=== PATIENT | female | born 1985 | race Caucasian/White ===

== ENCOUNTER 2017-07-24 10:38 | Inpatient (IN) | payer MEDICARE, MEDICAID ==
[~2017-07-24] VITALS: Ht 162.6 cm; Wt 57.0 kg
[~2017-07-24 10:38] MED LIST: ACET325 PO; CARB200 PO; CIPR500T4 PO; DICY1TAB26 PO; OMPR20CCR PO; PRED10 PO; PROZ20CA11 PO; RISP1 PO; VIST50CA PO
[2017-07-24] MEDS ORDERED: SODIUM CHLOR 0.9% 1000 ML INJ 1,000 ML IV SCH (10:43)
[2017-07-24] MEDS ORDERED: SODIUM CHLORIDE 0.9% FLUSH 10 ML FLUSH IV FLUSH PRN ×2 (10:45→13:45)
[2017-07-24 10:50] VITALS: BP 121/82; PULSE 96; RESP 18; TEMP 99; O2SAT 97
--- NOTE | 2017-07-24 11:08 | RADRPT ---
EXAM DATE/TIME: 07/24/2017 10:49 [facility] COMPARISON: CHEST SINGLE AP, December 19, 2012, 10:00. INDICATIONS : Syncope. MEDICAL HISTORY : Non-responsive. SURGICAL HISTORY : Non-responsive ENCOUNTER: Initial ACUITY: 1 day PAIN SCORE: Non-responsive. LOCATION: Bilateral chest FINDINGS: A single view of the chest demonstrates the lungs to be symmetrically aerated without evidence of mas s, infiltrate or effusion. The cardiomediastinal contours are unremarkable. Osseous structures are intact. CONCLUSION: 1. No acute cardiopulmonary findings. German Alexander MD on July 24, 2017 at 11:06 Board Certified Radiologist. This report was verified electronically.
--- NOTE | 2017-07-24 11:15 | PD ---
HPI Chief Complaint: Seizure Time Seen by Provider: 10:54 Travel History International Travel<30 days: No Contact w/Intl Traveler<30days: No History of Present Illness HPI Patient comes emergency department from [facility] after having 3 witnessed seizures. Patient was there reportedly for treatment of substance abuse. Patient received Versed in route by EMS and is currently nonverbal and appears postictal thus severely limiting H&P, but is noted in her chart from previous visits that she has a history of epilepsy. Paperwork sent with patient shows that she was placed in her [place] on July 20 is good for 5 days. PFSH Past Medical History Asthma: Yes Bipolar Disorder: Yes Anxiety: Yes Depression: Yes Cancer: No Endocrine: No Gastrointestinal Disorders: Yes (CROHN'S & ULCERATIVE COLITIS) Genitourinary: No Hiatal Hernia: Yes (HERNIA REPAIR) Immune Disorder: No Musculoskeletal: Yes Neurologic: Yes Psychiatric: Yes (PTSD) Reproductive: No Respiratory: Yes Schizophrenia: Yes Seizures: Yes (EPPILESY) Tubal Ligation: Yes Past Surgical History Abdominal Surgery: Yes (HERNIA, COLON RESEC, COLOSTOMY & REVERSAL) Social History Alcohol Use: Yes (OCC) Tobacco Use: No Allergies-Medications (Allergen,Severity, Reaction): Coded Allergies: No Known Allergies (Unverified , 12/19/12) Reported Meds & Prescriptions Reported Meds & Active Scripts Active Reported Morphine ER (Morphine Sulfate) 15 Mg Tab 15 Mg PO BID Proair Hfa 8.5 GM Inh (Albuterol Sulfate) 90 Mcg/Act Aer 2 Puff INH Q6H PRN 108 mcg/actuation Mirapex (Pramipexole Dihydrochloride) 1 Mg Tab 1 Mg PO BID Seroquel (Quetiapine Fumarate) 200 Mg Tab 200 Mg PO BID Gabapentin 300 Mg Cap 300 Mg PO TID Prednisone 10 Mg Tab 30 Mg PO DAILY Zantac (Ranitidine HCl) 150 Mg Tab 150 Mg PO BID Tegretol (Carbamazepine) 200 Mg Tab 200 Mg PO BID Review of Systems ROS Limitations: Clinical Condition Except as stated in HPI: all other systems reviewed are Neg Physical Exam Exam Limitations: Clinical Condition Narrative GENERAL: Well-developed, well nourished, in no acute distress, and non-ill appearing. SKIN: Focused skin assessment warm and dry. HEAD: Atraumatic. Normocephalic. EYES: Pupils equal and round. No scleral icterus. No injection or drainage. ENT: No nasal bleeding or discharge. Mucous membranes pink and moist. No bite hernández or injuries noted to the tongue or teeth. NECK: Trachea midline. No JVD. Supple. CARDIOVASCULAR: Regular rate and rhythm. No murmur appreciated. RESPIRATORY: No accessory muscle use. No respiratory distress. Clear to auscultation. Breath sounds equal bilaterally. GASTROINTESTINAL: Abdomen soft, non-tender, nondistended, and no guarding. Hepatic and splenic margins not palpable. Normal bowel sounds x4. No pulsatile mass. MUSCULOSKELETAL: No obvious deformities. No clubbing. No cyanosis. No edema. NEUROLOGICAL: Postictal Data Data Last Documented VS Vital Signs Date Time Temp Pulse Resp B/P (MAP) Pulse Ox O2 Delivery O2 Flow Rate FiO2 07/24/17 11:17 99.0 85 18 121/82 (95) 97 Room Air Orders Orders Electrocardiogram (07/24/17 10:43) Ammonia (07/24/17 10:43) Complete Blood Count With Diff (07/24/17 10:43) Comprehensive Metabolic Panel (07/24/17 10:43) Prothrombin Time / Inr (Pt) (07/24/17 10:43) Act Partial Throm Time (Ptt) (07/24/17 10:43) Thyroid Stimulating Hormone (07/24/17 10:43) Urinalysis - C+S If Indicated (07/24/17 10:43) Chest, Single Ap (07/24/17 10:43) Ct Brain W/O Iv Contrast(Rout) (07/24/17 10:43) Blood Glucose (07/24/17 10:43) Ecg Monitoring (07/24/17 10:43) Iv Access Insert/Monitor (07/24/17 10:43) Oximetry (07/24/17 10:43) Sodium Chloride 0.9% Flush (Ns Flush) (07/24/17 10:45) Sodium Chlor 0.9% 1000 Ml Inj (Ns 1000 M (07/24/17 10:43) Drug Screen, Random Urine (07/24/17 10:43) Alcohol (Ethanol) (07/24/17 10:43) Tylenol (Acetaminophen) (07/24/17 10:43) Salicylates (Aspirin) (07/24/17 10:43) Cath For Specimen (07/24/17 10:43) Lactic Acid (07/24/17 10:43) Ed Urine Pregnancytest Poc (07/24/17 10:45) Ketorolac Inj (Toradol Inj) (07/24/17 13:00) Carbamazepine (Tegretol) (07/24/17 13:00) Gabapentin (Neurontin) (07/24/17 13:00) Place In Observation (07/24/17 ) Vital Signs (Adult) Q4H (07/24/17 13:32) Neuro Checks Q4H (07/24/17 13:32) Activity Oob With Assistance (07/24/17 13:32) Diet Regular Basic (07/24/17 Lunch) Sodium Chlor 0.9% 1000 Ml Inj (Ns 1000 M (07/24/17 13:32) Sodium Chloride 0.9% Flush (Ns Flush) (07/24/17 13:45) Sodium Chloride 0.9% Flush (Ns Flush) (07/24/17 21:00) Acetaminophen (Tylenol) (07/24/17 13:45) Ondansetron Inj (Zofran Inj) (07/24/17 13:45) Comprehensive Metabolic Panel (07/25/17 06:00) Complete Blood Count With Diff (07/25/17 06:00) Resp Oxygen Spike C Titrat 1-4 L (07/24/17 ) Pt Request For Service (07/24/17 13:32) Case Management Consult (07/24/17 13:32) Enoxaparin Inj (Lovenox Inj) (07/24/17 13:45) Scd Bilateral/Knee High LIZETH.BID (07/24/17 13:32) Logan Bilateral/Knee High LIZETH.QSHIFT (07/24/17 13:32) Naloxone Inj (Narcan Inj) (07/24/17 13:45) Docusate Sodium-Senna (Lesly-Colace) (07/24/17 21:00) Magnesium Hydroxide Liq (Milk Of Magnesi (07/24/17 13:45) Sennosides (Senokot) (07/24/17 13:45) Bisacodyl Supp (Dulcolax Supp) (07/24/17 13:45) Lactulose Liq (Lactulose Liq) (07/24/17 13:45) Albuterol Hfa Inh (Proair Hfa Inh) (07/24/17 13:45) Carbamazepine (Tegretol) (07/24/17 21:00) Gabapentin (Neurontin) (07/24/17 18:00) Pramipexole (Mirapex) (07/24/17 21:00) Quetiapine (Seroquel) (07/24/17 21:00) (Nf) Ranitidine (Zantac) (07/24/17 21:00) Consult Neurology (07/24/17 ) Portable Eeg (07/24/17 ) Prednisone (Deltasone) (07/25/17 09:00) Admit Order (Ed Use Only) (07/24/17 ) Vital Signs (Adult) Q4H (07/24/17 13:44) Activity Oob With Assistance (07/24/17 13:44) Notify Dr: Other (07/24/17 13:44) Labs Laboratory Tests Test 07/24/17 10:55 07/24/17 11:10 07/24/17 12:20 Blood Urea Nitrogen 9 MG/DL Creatinine 0.62 MG/DL Random Glucose 88 MG/DL Total Protein 7.2 GM/DL Albumin 3.3 GM/DL Calcium Level 9.4 MG/DL Alkaline Phosphatase 90 U/L Aspartate Amino Transf (AST/SGOT) 16 U/L Alanine Aminotransferase (ALT/SGPT) 18 U/L Total Bilirubin 0.1 MG/DL Sodium Level 136 MEQ/L Potassium Level 4.2 MEQ/L Chloride Level 103 MEQ/L Carbon Dioxide Level 25.7 MEQ/L Anion Gap 7 MEQ/L Estimat Glomerular Filtration Rate 111 ML/MIN Lactic Acid Level 1.5 mmol/L Ammonia 17 MCMOL/L Thyroid Stimulating Hormone 3rd Gen 0.288 uIU/ML Acetaminophen Level 2.9 MCG/ML Ethyl Alcohol Level LESS THAN 3 MG/DL Urine Color LIGHT-YELLOW Urine Turbidity CLEAR Urine pH 7.0 Urine Specific [place] 1.010 Urine Protein NEG mg/dL Urine Glucose (UA) NEG mg/dL Urine Ketones NEG mg/dL Urine Occult Blood NEG Urine Nitrite NEG Urine Bilirubin NEG Urine Urobilinogen LESS THAN 2.0 MG/DL Urine Leukocyte Esterase NEG Urine WBC LESS THAN 1 /hpf Urine Squamous Epithelial Cells 2 /hpf Microscopic Urinalysis Comment CATH-CULT NOT IND Urine Opiates Screen NEG Urine Barbiturates Screen NEG Urine Amphetamines Screen NEG Urine Benzodiazepines Screen POS Urine Cocaine Screen NEG Urine Cannabinoids Screen NEG White Blood Count 8.5 TH/MM3 Red Blood Count 4.02 MIL/MM3 Hemoglobin 11.2 GM/DL Hematocrit 33.8 % Mean Corpuscular Volume 84.1 FL Mean Corpuscular Hemoglobin 27.9 PG Mean Corpuscular Hemoglobin Concent 33.2 % Red Cell Distribution Width 17.3 % Platelet Count 405 TH/MM3 Mean Platelet Volume 7.8 FL Neutrophils (%) (Auto) 69.7 % Lymphocytes (%) (Auto) 21.4 % Monocytes (%) (Auto) 6.0 % Eosinophils (%) (Auto) 2.1 % Basophils (%) (Auto) 0.8 % Neutrophils # (Auto) 5.9 TH/MM3 Lymphocytes # (Auto) 1.8 TH/MM3 Monocytes # (Auto) 0.5 TH/MM3 Eosinophils # (Auto) 0.2 TH/MM3 Basophils # (Auto) 0.1 TH/MM3 CBC Comment DIFF FINAL Differential Comment Prothrombin Time 9.5 SEC Prothromb Time International Ratio 0.9 RATIO Activated Partial Thromboplast Time 27.1 SEC MDM Medical Decision Making Medical Screen Exam Complete: Yes Emergency Medical Condition: Yes Interpretation(s) EKG reviewed by Dr. Black shows normal sinus rhythm with a ventricular rate of 93. No STEMI. Last Impressions Head CT 07/24/171042 Signed Impressions: Service Date/Time: Monday, July 24, 2017 11:00 - CONCLUSION: Negative exam. No acute intracranial process to explain clinical symptoms. Matthew Mart MD Chest X-Ray 07/24/17 104 Signed Impressions: Service Date/Time: Monday, July 24, 2017 10:49 - CONCLUSION: 1. No acute cardiopulmonary findings. German Alexander MD Differential Diagnosis Uncontrolled epilepsy, substance abuse, metabolic disturbance, UTI, thyroid disorder, mass, pneumonia Narrative Course Upon reevaluation. Patient is more alert reports that she has a history of epilepsy past was taking Tegretol 200 mg twice daily and gabapentin 300 mg 3 times daily. Patient denies substance abuse was noted on [place] states that she takes her medications as prescribed. Patient denies seeing a neurologist currently. Patient is appears to be mildly groggy. Patient's E-force was reviewed shows patient is not excreted prescription for narcotics since April of this year and has not received a prescription for Xanax since December of last year. Patient was seen and examined. Initial laboratory radiological studies were ordered. Discussed patient with Dr. Black, who saw and evaluated patient is in agreement with plan of care and disposition. Discussed all findings plan the patient is agreeable for admission. All questions were answered. Discussed patient with hospitalist who is agreeable to admit the patient. Patient remained stable throughout ED course. Physician Communication Physician Communication [phone] Carolina, who is agreeable to admit the patient. Diagnosis Primary Impression: Epilepsy Qualified Codes: G40.901 - Epilepsy, unspecified, not intractable, with status epilepticus Additional Impression: Low TSH level Admitting Information Admitting Physician Requests: Observation Condition: Stable Candido Hauser Jul 24, 2017 11:15
[2017-07-24 11:17] VITALS: BP 121/82; PULSE 85; RESP 18; TEMP 99; O2SAT 97
--- NOTE | 2017-07-24 11:18 | RADRPT ---
EXAM DATE/TIME: 07/24/2017 11:00 [facility] COMPARISON: No previous studies available for comparison. INDICATIONS : Altered mental status RADIATION DOSE: 56.35 CTDIvol (mGy) MEDICAL HISTORY : Seizures. Asthma SURGICAL HISTORY : Tubal ligation. ENCOUNTER: Initial ACUITY: 1 day PAIN SCALE: Non-responsive LOCATION: cranial TECHNIQUE: Multiple contiguous axial images were obtained of the head. Using automated exposure control and adj ustment of the mA and/or kV according to patient size, radiation dose was kept as low as reasonably a chievable to obtain optimal diagnostic quality images. DICOM format image data is available electro nically for review and comparison. FINDINGS: CEREBRUM: The ventricles are normal for age. No evidence of midline shift, mass lesion, hemorrhage or acute in farction. Dense, benign pineal calcification. No extra-axial fluid collections are seen. POSTERIOR FOSSA: The cerebellum and brainstem are intact. The 4th ventricle is midline. The cerebellopontine angle i s unremarkable. EXTRACRANIAL: The visualized portion of the orbits is intact. SKULL: The calvaria is intact. No evidence of skull fracture. CONCLUSION: Negative exam. No acute intracranial process to explain clinical symptoms. Matthew Mart MD on July 24, 2017 at 11:15 Board Certified Radiologist. This report was verified electronically.
[2017-07-24 11:31] LABS: BILIRUBIN, URINE NEG (NEG); BLOOD, URINE NEG (NEG); GLUCOSE,URINE NEG (NEG); KETONE, URINE NEG (NEG); NITRITE,URINE NEG (NEG); SQUAMOUS EPITHELIAL CELL URINE 2 /hpf (0-5); URINE COLOR LIGHT-YELLOW (YELLW/STRAW); URINE LEUKOCYTE ESTERASE NEG (NEG)
[2017-07-24 11:55] LABS: ACETAMINOPHEN 2.9 MCG/ML (10.0-30.0); ALBUMIN 3.3 GM/DL (3.4-5.0); ALT (GPT) 18 U/L (10-53); AST (GOT) 16 U/L (15-37); BICARBONATE 25.7 MEQ/L (21.0-32.0); BLOOD UREA NITROGEN 9 MG/DL (7-18); CALCIUM 9.4 MG/DL (8.5-10.1); CREATININE 0.62 MG/DL (0.50-1.00); GLOMERULAR FILTRATION RATE 111 ML/MIN (>89); GLUCOSE,RANDOM 88 MG/DL (74-106)
[2017-07-24 11:57] LABS: CHLORIDE 103 MEQ/L (98-107); SODIUM (NA) 136 MEQ/L (136-145)
[2017-07-24 12:04] LABS: ALKALINE PHOSPHATASE 90 U/L (45-117); TOTAL BILIRUBIN ADULT 0.1 MG/DL (0.2-1.0); TOTAL PROTEIN 7.2 GM/DL (6.4-8.2)
[2017-07-24 12:36] LABS: AUTOMATED NEUTROPHIL # 5.9 TH/MM3 (1.8-7.7); BASOPHIL # 0.1 TH/MM3 (0-0.2); BASOPHIL % 0.8 % (0.0-2.0); EOSINOPHIL # 0.2 TH/MM3 (0-0.4); EOSINOPHIL % 2.1 % (0.0-4.0); HEMATOCRIT 33.8 % (35.0-46.0); HEMOGLOBIN 11.2 GM/DL (11.6-15.3); LYMPH % 21.4 % (9.0-44.0); LYMPHOCYTE # 1.8 TH/MM3 (1.0-4.8); MEAN CELL VOLUME 84.1 FL (80.0-100.0); MEAN CORPUSCULAR HEMOGLOBIN 27.9 PG (27.0-34.0); MEAN CORPUSCULAR HGB CONC 33.2 % (32.0-36.0); MEAN PLATELET VOLUME 7.8 FL (7.0-11.0); MONOCYTE # 0.5 TH/MM3 (0-0.9); NEUT % 69.7 % (16.0-70.0); PLATELET COUNT 405 TH/MM3 (150-450); RED BLOOD COUNT 4.02 MIL/MM3 (4.00-5.30); RED CELL DISTRIBUTION WIDTH 17.3 % (11.6-17.2); WHITE BLOOD COUNT 8.5 TH/MM3 (4.0-11.0)
[2017-07-24 12:43] LABS: INTERNATIONAL NORMALIZED RATIO 0.9 RATIO; PROTHROMBIN TIME - PATIENT 9.5 SEC (9.8-11.6)
[2017-07-24] MEDS ORDERED: GABAPENTIN 100 MG CAP PO ONE (13:00)
[2017-07-24] MEDS ORDERED: carBAMazepine 200 MG TAB PO ONE (13:00)
[2017-07-24] MEDS ORDERED: KETOROLAC TROMETHAMINE 30 MG/ML (IVP) VIAL IV PUSH ONE (13:00)
[2017-07-24] MEDS ORDERED: SERO200T PO (13:26)
[2017-07-24] MEDS ORDERED: ZANT150T2 PO (13:26)
[2017-07-24] MEDS ORDERED: GABA300C5 PO (13:26)
[2017-07-24] MEDS ORDERED: TEGR200T PO (13:26)
[2017-07-24] MEDS ORDERED: PRAM1 PO (13:26)
[2017-07-24] MEDS ORDERED: ALBUAER3 INH (13:26)
[2017-07-24] MEDS ORDERED: PRED10 PO (13:26)
[2017-07-24] MEDS ORDERED: MORP1TAB24 PO (13:36)
[2017-07-24] MEDS ORDERED: SENNOSIDES 8.6 MG TAB PO PRN (13:45)
[2017-07-24] MEDS ORDERED: MAGNESIUM HYDROXIDE SUSP 30 ML CUP PO PRN (13:45)
[2017-07-24] MEDS ORDERED: LACTULOSE SYRUP 20 GM/30 ML CUP PO PRN (13:45)
[2017-07-24] MEDS ORDERED: ALBUTEROL SULFATE 90 MCG/ACT HFA 8 GM INHALER INH PRN (13:45)
[2017-07-24] MEDS ORDERED: BISACODYL 10 MG SUPP RECTAL PRN (13:45)
[2017-07-24] MEDS ORDERED: NALOXONE HCL 0.4 MG/ML AMP IV PUSH PRN (13:45)
[2017-07-24] MEDS ORDERED: ACETAMINOPHEN 325 MG TAB PO PRN (13:45)
[2017-07-24] MEDS ORDERED: GADODIAMIDE PF 287 MG/ML 5 ML VIAL (for RAD MRI) IVCONTRAST ONE (13:47)
--- NOTE | 2017-07-24 15:09 | HHI.HP ---
[facility] Primary Care Physician Admission Diagnosis Epilepsy Diagnoses: Chief Complaint: seizures Travel History International Travel<30 Days: No Contact w/Intl Traveler <30 Da: No Traveled to Known Affected Are: No History of Present Illness Patient is a 32 yo F with h/o seizures, Crohn's and UC comes to the emergency department from [facility] after having 3 witnessed seizures. Patient was there reportedly for treatment of substance abuse. Patient received Versed by EMS. Paperwork sent with patient shows that she was placed in her [place] on July 20 is good for 5 days. Now is more awake, asking for pain meds for her back. Says he takes morphine for back as she follows with pain management. Patient is telling me she was sent here from [facility] because she had seizures. Patient Says she feels a little weak now. No cp, sob, n/v/d/c. Denies abd pain. Review of Systems ROS Limitations: Clinical Condition Except as stated in HPI: all other systems reviewed are Neg Past Family Social History Past Medical History Seizures, Crohns, depression, panic disorder, bipolar Past Surgical History Hernia, colon resection, colostomy reversal, tubal ligation Reported Medications Last Impressions Head CT 07/24/17 1043 Signed Impressions: Service Date/Time: Monday, July 24, 2017 11:00 - CONCLUSION: Negative exam. No acute intracranial process to explain clinical symptoms. Matthew Mart MD Chest X-Ray 07/24/17 1043 Signed Impressions: Service Date/Time: Monday, July 24, 2017 10:49 - CONCLUSION: 1. No acute cardiopulmonary findings. German Alexander MD Allergies: Coded Allergies: No Known Allergies (Unverified , 12/19/12) Family History Seizure cousin, aunt Mom with HTN, DM, thyroid Dad MS Social History Says she is smoking pot Used cocaine in the past Says she is taking prescription drugs xanax and morphine, says she follows with pain management EtOH use 2-3 beets daily Physical Exam Vital Signs Vital Signs Date Time Temp Pulse Resp B/P (MAP) Pulse Ox O2 Delivery O2 Flow Rate FiO2 07/24/17 11:17 99.0 85 18 121/82 (95) 97 Room Air 07/24/17 11:17 18 Room Air 07/24/17 11:17 97 Room Air 07/24/17 10:50 99.0 96 18 121/82 (95) 97 Physical Exam GENERAL: This is a well-nourished, well-developed patient, in no apparent distress. SKIN: No rashes, ecchymoses or lesions. Cool and dry. HEAD: Atraumatic. Normocephalic. No temporal or scalp tenderness. EYES: Pupils equal round and reactive. Extraocular motions intact. No scleral icterus. No injection or drainage. ENT: Nose without bleeding, purulent drainage or septal hematoma. Throat without erythema, tonsillar hypertrophy or exudate. Uvula midline. Airway patent. NECK: Trachea midline. No JVD or lymphadenopathy. Supple, nontender, no meningeal signs. CARDIOVASCULAR: Regular rate and rhythm without murmurs, gallops, or rubs. RESPIRATORY: Clear to auscultation. Breath sounds equal bilaterally. No wheezes , rales, or rhonchi. GASTROINTESTINAL: Abdomen soft, non-tender, nondistended. No hepato-splenomegaly , or palpable masses. No guarding. MUSCULOSKELETAL: Extremities without clubbing, cyanosis, or edema. No joint tenderness, effusion, or edema noted. No calf tenderness. Negative Homans sign bilaterally. NEUROLOGICAL: Awake and alert. Cranial nerves II through XII intact. Motor and sensory grossly within normal limits. Five out of 5 muscle strength in all muscle groups. Normal speech. Laboratory Laboratory Tests Test 07/24/17 10:55 07/24/17 11:10 07/24/17 12:20 Blood Urea Nitrogen 9 Creatinine 0.62 Random Glucose 88 Total Protein 7.2 Albumin 3.3 Calcium Level 9.4 Alkaline Phosphatase 90 Aspartate Amino Transf (AST/SGOT) 16 Alanine Aminotransferase (ALT/SGPT) 18 Total Bilirubin 0.1 Sodium Level 136 Potassium Level 4.2 Chloride Level 103 Carbon Dioxide Level 25.7 Anion Gap 7 Estimat Glomerular Filtration Rate 111 Lactic Acid Level 1.5 Ammonia 17 Thyroid Stimulating Hormone 3rd Gen 0.288 Acetaminophen Level 2.9 Ethyl Alcohol Level LESS THAN 3 Urine Color LIGHT-YELLOW Urine Turbidity CLEAR Urine pH 7.0 Urine Specific [place] 1.010 Urine Protein NEG Urine Glucose (UA) NEG Urine Ketones NEG Urine Occult Blood NEG Urine Nitrite NEG Urine Bilirubin NEG Urine Urobilinogen LESS THAN 2.0 Urine Leukocyte Esterase NEG Urine WBC LESS THAN 1 Urine Squamous Epithelial Cells 2 Microscopic Urinalysis Comment CATH-CULT NOT IND Urine Opiates Screen NEG Urine Barbiturates Screen NEG Urine Amphetamines Screen NEG Urine Benzodiazepines Screen POS Urine Cocaine Screen NEG Urine Cannabinoids Screen NEG White Blood Count 8.5 Red Blood Count 4.02 Hemoglobin 11.2 Hematocrit 33.8 Mean Corpuscular Volume 84.1 Mean Corpuscular Hemoglobin 27.9 Mean Corpuscular Hemoglobin Concent 33.2 Red Cell Distribution Width 17.3 Platelet Count 405 Mean Platelet Volume 7.8 Neutrophils (%) (Auto) 69.7 Lymphocytes (%) (Auto) 21.4 Monocytes (%) (Auto) 6.0 Eosinophils (%) (Auto) 2.1 Basophils (%) (Auto) 0.8 Neutrophils # (Auto) 5.9 Lymphocytes # (Auto) 1.8 Monocytes # (Auto) 0.5 Eosinophils # (Auto) 0.2 Basophils # (Auto) 0.1 CBC Comment DIFF FINAL Differential Comment Prothrombin Time 9.5 Prothromb Time International Ratio 0.9 Activated Partial Thromboplast Time 27.1 Result Diagram: 07/24/17 1220 07/24/17 1055 Imaging Last Impressions Head CT 07/24/17 1043 Signed Impressions: Service Date/Time: Monday, July 24, 2017 11:00 - CONCLUSION: Negative exam. No acute intracranial process to explain clinical symptoms. Matthew Mart MD Chest X-Ray 07/24/17 1043 Signed Impressions: Service Date/Time: Monday, July 24, 2017 10:49 - CONCLUSION: 1. No acute cardiopulmonary findings. German Alexander MD Caprini VTE Risk Assessment Caprini VTE Risk Assessment: Mod/High Risk (score >= 2) Caprini Risk Assessment Model Point Value = 1 Point Value = 2 Point Value = 3 Point Value = 5 Age 41-60 Minor surgery BMI > 25 kg/m2 Swollen legs Varicose veins or History of unexplained or recurrent spontaneous Oral contraceptives or hormone replacement Sepsis (< 1 month) Serious lung disease, including pneumonia (< 1 month) Abnormal pulmonary function Acute myocardial infarction Congestive heart failure (< 1 month) History of inflammatory bowel disease Medical patient at bed rest Age 61-74 Arthroscopic surgery Major open surgery (> 45 min) Laparoscopic surgery (> 45 min) Malignancy Confined to bed (> 72 hours) Immobilizing plaster cast Central venous access Age >= 75 History of VTE Family history of VTE Factor V Leiden Prothrombin [id number] Lupus anticoagulant Anticardiolipin antibodies Elevated serum homocysteine Heparin-induced thrombocytopenia Other congenital or acquired thrombophilia Stroke (< 1 month) Elective arthroplasty Hip, pelvis, or leg fracture Acute spinal cord injury (< 1 month) Prophylaxis Regimen Total Risk Factor Score Risk Level Prophylaxis Regimen 0-1 Low Early ambulation 2 Moderate Order ONE of the following: *Sequential Compression Device (SCD) *Heparin 5000 units SQ BID 3-4 Higher Order ONE of the following medications: *Heparin 5000 units SQ TID *Enoxaparin/Lovenox 40 mg SQ daily (WT < 150 kg, CrCl > 30 mL/min) *Enoxaparin/Lovenox 30 mg SQ daily (WT < 150 kg, CrCl > 10-29 mL/min) *Enoxaparin/Lovenox 30 mg SQ BID (WT < 150 kg, CrCl > 30 mL/min) AND/OR *Sequential Compression Device (SCD) 5 or more Highest Order ONE of the following medications: *Heparin 5000 units SQ TID (Preferred with Epidurals) *Enoxaparin/Lovenox 40 mg SQ daily (WT < 150 kg, CrCl > 30 mL/min) *Enoxaparin/Lovenox 30 mg SQ daily (WT < 150 kg, CrCl > 10-29 mL/min) *Enoxaparin/Lovenox 30 mg SQ BID (WT < 150 kg, CrCl > 30 mL/min) AND *Sequential Compression Device (SCD) Assessment and Plan Assessment and Plan Breakthrough seizures Tegretol 200 mg twice daily Gabapentin 300 mg 3 times daily Patient denies substance abuse was noted on [place] states that she takes her medications as prescribed Has not received a prescription for Xanax since December. EKG reviewed shows normal sinus rhythm with a ventricular rate of 93. No ischemic changes. Do EEG Neurochecks Seizure precautions Consult neurology Restart home meds as appropriate Discussed Condition With pt., nurse, ED Sarah Beth Salvador MD Jul 24, 2017 15:09
[2017-07-24 16:46] VITALS: BP 124/85; PULSE 88; RESP 18; TEMP 98.7; O2SAT 97
[2017-07-24] MEDS: SODIUM CHLOR 0.9% 1000 ML INJ 1,000 ML IV SCH ×2 (17:37→23:32)
[2017-07-24] MEDS: ENOXAPARIN SODIUM 40 MG/0.4 ML SYRINGE SQ SCH (17:37)
[2017-07-24] MEDS: GABAPENTIN 300 MG CAP PO SCH (17:37)
[2017-07-24] MEDS: ACETAMINOPHEN 500 MG CPLT PO PRN (17:37)
--- NOTE | 2017-07-24 18:23 | MG ---
cc: Aris Dempsey MD DATE OF STUDY 07/24/2017 EEG NUMBER: [id number] INDICATION FOR STUDY: Long history of seizures, 3 witnessed seizures from [facility], on Tegretol, gabapentin, and Mirapex. DESCRIPTION OF EEG: Diffuse beta rhythms are noted ,consistent with benzodiazepine administration. Recording overall is synchronous and symmetric. Photic stimulation is performed without significant posterior driving. No epileptiform or seizure activity is noted. There are no hemisphere asymmetries. No primary generalized seizure disorders were seen. IMPRESSION: Some beta rhythms consistent with medication use. Otherwise, unremarkable. Aris Dempsey MD DJM/KD , 06:07 PM , 06:22 PM
[2017-07-24 19:08] VITALS: BP 136/86; PULSE 92; RESP 18; O2SAT 99
[2017-07-24 19:47] LABS: C-REACTIVE PROTEIN 0.76 MG/DL (0.00-0.30)
[2017-07-24 20:12] LABS: CARBAMAZEPINE (TEGRETOL) 7.6 MCG/ML (4.0-12.0); FREE T4 0.63 NG/DL (0.76-1.46)
[2017-07-24] MEDS ORDERED: diphenhydrAMINE HCL 50 MG CAP PO ONE (20:15)
[2017-07-24] MEDS: FAMOTIDINE 20 MG TAB PO SCH (20:48)
[2017-07-24] MEDS: SODIUM CHLORIDE 0.9% FLUSH 10 ML FLUSH IV FLUSH SCH (20:49)
[2017-07-24] MEDS: QUEtiapine FUMARATE 200 MG TAB PO SCH (20:49)
[2017-07-24] MEDS: DOCUSATE SODIUM 50 MG/SENNA 8.6 MG TAB PO SCH (20:49)
[2017-07-24] MEDS: PRAMIPEXOLE DIHYDROCHLORIDE 1 MG TAB PO SCH (20:57)
[2017-07-24] MEDS ORDERED: carBAMazepine 200 MG TAB PO SCH (21:00)
[2017-07-24] MEDS ORDERED: PILL SPLITTER OTHER PRN (21:45)
--- NOTE | 2017-07-24 23:41 | RADRPT ---
EXAM DATE/TIME: 07/24/2017 22:25 [facility] COMPARISON: No previous studies available for comparison. INDICATIONS : CVA. CONTRAST: 12 cc Omniscan (gadodiamide) IV MEDICAL HISTORY : Seizures. SURGICAL HISTORY : Tubal ligation. Colon resection. Tumor removed from back. ENCOUNTER: Initial ACUITY: 1 day PAIN SCORE: 3/10 LOCATION: Bilateral cranial TECHNIQUE: Multiplanar, multisequence MRI of the brain was performed both prior to and following the administrat ion of paramagnetic contrast. FINDINGS: CEREBRUM: The ventricles are normal for age. No evidence of midline shift, mass lesion, hemorrhage or acute in farction. No extraaxial fluid collections are seen. The pituitary gland and suprasellar cistern are normal in configuration. WHITE MATTER: No significant signal abnormalities are seen in the white matter. POSTERIOR FOSSA: The cerebellum and brainstem are intact. The 4th ventricle is midline. The cerebellopontine angle is unremarkable. The cerebellar tonsils are normal in position. DIFFUSION IMAGING: No focal areas of restricted diffusion are seen. No evidence of acute infarction. EXTRACRANIAL: The visualized portions of the orbits and paranasal sinuses are unremarkable. POST-CONTRAST: No abnormal areas of parenchymal or dural enhancement. No evidence of blood-brain barrier breakdown. CONCLUSION: Normal examination. Matthieu Herbert MD on July 24, 2017 at 23:37 Board Certified Radiologist. This report was verified electronically.
[2017-07-25] VITALS (20 sets, daily range): BP systolic 104–124; BP diastolic 64–94; PULSE 76–139; RESP 9–70; TEMP 98–99.2; O2SAT 81–100
[2017-07-25 07:12] LABS: AUTOMATED NEUTROPHIL # 3.7 TH/MM3 (1.8-7.7); BASOPHIL # 0.1 TH/MM3 (0-0.2); BASOPHIL % 1.1 % (0.0-2.0); EOSINOPHIL # 0.1 TH/MM3 (0-0.4); EOSINOPHIL % 2.1 % (0.0-4.0); HEMATOCRIT 32.8 % (35.0-46.0); HEMOGLOBIN 10.8 GM/DL (11.6-15.3); LYMPH % 31.6 % (9.0-44.0); LYMPHOCYTE # 2.1 TH/MM3 (1.0-4.8); MEAN CELL VOLUME 84.3 FL (80.0-100.0); MEAN CORPUSCULAR HEMOGLOBIN 27.8 PG (27.0-34.0); MEAN PLATELET VOLUME 7.9 FL (7.0-11.0); MONO % 9.3 % (0.0-8.0); MONOCYTE # 0.6 TH/MM3 (0-0.9); NEUT % 55.9 % (16.0-70.0); PLATELET COUNT 389 TH/MM3 (150-450); RED CELL DISTRIBUTION WIDTH 17.7 % (11.6-17.2); WHITE BLOOD COUNT 6.6 TH/MM3 (4.0-11.0)
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
--- NOTE | 2017-07-25 07:30 | HHI.PR ---
Subjective Remarks just had another gtc sz giving ativan and starting vpa Objective Vital Signs Date Time Temp Pulse Resp B/P (MAP) Pulse Ox O2 Delivery O2 Flow Rate FiO2 07/25/17 07:12 98.0 90 20 120/71 (87) 96 07/25/17 04:42 98.2 76 18 115/77 (90) 99 07/24/17 21:41 21 07/24/17 19:08 92 18 136/86 (103) 99 07/24/17 16:46 98.7 88 18 124/85 (98) 97 07/24/17 16:12 07/24/17 14:19 18 07/24/17 11:17 99.0 85 18 121/82 (95) 97 Room Air 07/24/17 11:17 18 Room Air 07/24/17 11:17 97 Room Air 07/24/17 10:50 99.0 96 18 121/82 (95) 97 I/O 07/24/17 07/24/17 07/24/17 07/25/17 07/25/17 07/25/17 07:00 15:00 23:00 07:00 15:00 23:00 # Voids 1 # Bowel Movements 1 Result Diagram: 07/25/17 0636 07/24/17 1055 Objective Remarks postictal Assessment and Plan Assessment and Plan imp mri nl eeg neg cbz 7.6 i inc dose last noc to 300 bid needs sitter ativan iv depacon stat just had another sz Aris Dempsey MD Jul 25, 2017 07:29
--- NOTE | 2017-07-25 07:30 | HHI.PR ---
Subjective Remarks Follow up for seizures. Patient having 2 recurrent seizures this morning. Vital signs stable. No reported seizures overnight. Patient unable to give any history due to ongoing seizure. RN giving IV Ativan. Discussed with Dr. Dempsey , recommends transfer to ICU. Objective Vitals Vital Signs Date Time Temp Pulse Resp B/P (MAP) Pulse Ox O2 Delivery O2 Flow Rate FiO2 07/25/17 07:12 98.0 90 20 120/71 (87) 96 07/25/17 04:42 98.2 76 18 115/77 (90) 99 07/24/17 21:41 21 07/24/17 19:08 92 18 136/86 (103) 99 07/24/17 16:46 98.7 88 18 124/85 (98) 97 07/24/17 16:12 07/24/17 14:19 18 07/24/17 11:17 99.0 85 18 121/82 (95) 97 Room Air 07/24/17 11:17 18 Room Air 07/24/17 11:17 97 Room Air 07/24/17 10:50 99.0 96 18 121/82 (95) 97 I/O 07/24/17 07/24/17 07/24/17 07/25/17 07/25/17 07/25/17 07:00 15:00 23:00 07:00 15:00 23:00 # Voids 1 # Bowel Movements 1 Result Diagram: 07/25/17 0636 07/24/17 1055 Imaging Last Impressions Brain MRI 07/24/17 1736 Signed Impressions: Service Date/Time: Monday, July 24, 2017 22:25 - CONCLUSION: Normal examination. Matthieu Herbert MD Head CT 07/24/17 1043 Signed Impressions: Service Date/Time: Monday, July 24, 2017 11:00 - CONCLUSION: Negative exam. No acute intracranial process to explain clinical symptoms. Matthew Mart MD Chest X-Ray 07/24/17 104 Signed Impressions: Service Date/Time: Monday, July 24, 2017 10:49 - CONCLUSION: 1. No acute cardiopulmonary findings. German Alexander MD Objective Remarks GENERAL: Well-nourished, well-developed patient in NAD. Ongoing seizure with full body contractures and spasms. SKIN: Warm and dry. No rash. HEENT: Normocephalic. Atraumatic.Pupils equal and round. Mucous membranes pink and moist. NECK: Trachea midline. CARDIOVASCULAR: Regular rate and rhythm. S1, S2 noted. No murmur appreciated. RESPIRATORY: No accessory muscle use. Clear to auscultation. Breath sounds equal bilaterally. GASTROINTESTINAL: Abdomen soft, non-tender, nondistended. Normoactive bowel sounds x4. MUSCULOSKELETAL: No obvious deformities. Extremities without clubbing, cyanosis , or edema. NEUROLOGICAL: Ongoing seizure. Moving all extremities spontaneously with contractures and spasms. Medications and IVs Current Medications Medications (Trade) Dose Ordered Sig/Janie Route Start Time Stop Time Status Last Admin Sodium Chloride 1,000 ml @ 100 mls/hr Q10H IV 07/24/17 13:32 07/24/17 17:37 (NS Flush) 2 ml UNSCH PRN IV FLUSH 07/24/17 13:45 (NS Flush) 2 ml BID IV FLUSH 07/24/17 21:00 07/25/17 07:32 (Zofran Inj) 4 mg Q6H PRN IVP 07/24/17 13:45 (Lovenox Inj) 40 mg Q24H SQ 07/24/17 16:00 07/24/17 17:37 (Narcan Inj) 0.4 mg UNSCH PRN IV PUSH 07/24/17 13:45 (Lesly-Colace) 1 tab BID PO 07/24/17 21:00 07/24/17 20:49 (Milk Of Magnesia Liq) 30 ml Q12H PRN PO 07/24/17 13:45 (Senokot) 17.2 mg Q12H PRN PO 07/24/17 13:45 (Dulcolax Supp) 10 mg DAILY PRN RECTAL 07/24/17 13:45 (Lactulose Liq) 30 ml DAILY PRN PO 07/24/17 13:45 (Proair Hfa Inh) 2 puff Q6H PRN INH 07/24/17 13:45 (Neurontin) 300 mg TID PO 07/24/17 18:00 07/24/17 17:37 (Mirapex) 1 mg BID PO 07/24/17 21:00 07/24/17 20:57 (SEROquel) 200 mg BID PO 07/24/17 21:00 07/24/17 20:49 (Pepcid) 20 mg BID PO 07/24/17 21:00 07/24/17 20:48 (Deltasone) 30 mg DAILY PO 07/25/17 09:00 (Tylenol) 500 mg Q6H PRN PO 07/24/17 17:00 07/24/17 17:37 (TEGretol) 300 mg BID PO 07/25/17 09:00 (Pill Splitter) 1 ea UNSCH PRN OTHER 07/24/17 21:45 (Ativan Inj) 0.5 mg STAT ONCE IV 07/25/17 07:35 07/25/17 07:36 07/25/17 07:32 Valproate Sodium 500 mg/Sodium Chloride 105 ml @ 105 mls/hr Q8HR IV 07/25/17 07:30 UNV A/P Assessment and Plan 32 yo F with h/o seizures, Crohn's/UC, presents to the ED from [facility] after having 3 witnessed seizures. Patient was there reportedly for treatment of substance abuse. Patient received Versed by EMS. Paperwork sent with patient shows that she was placed in her [place] on July 20 is good for 5 days. Intractable Seizures: patient with 3 seizures at [facility], now with 2 seizures again this morning 07/25 in CDU. -Head CT and Brain MRI images reviewed, unremarkable -EEG 07/24 shows some beta rhythm consistent with medication use, otherwise unremarkable. -Neurology consulted, discussed with Dr. Dempsey -Started on IV Decadron 500mg q8h, follow daily levels -Continue Tegretol 200mg bid, Gabapentin 300mg tid, Mirapex 1mg bid -Seizure precautions, neuro checks -Transfer to [facility] per Dr. Dempsey Polysubstance Abuse: Presented under [facility] from [facility]. Has not received a prescription for Xanax since December. -patient will likely need to return to [facility] when medically clear -tylenol prn pain -avoid narcotics Crohn's Disease: chronic -continue patient's prednisone DVT Prophylaxis: Lovenox sq Discharge Planning Transfer to critical care unit per Dr. Dempsey. Patient with ongoing seizures in CDU. Celestina Whittaker PA-C Jul 25, 2017 7:30 am
[2017-07-25] MEDS: SODIUM CHLORIDE 0.9% FLUSH 10 ML FLUSH IV FLUSH SCH ×2 (07:32→21:00)
[2017-07-25] MEDS ORDERED: LORazepam 2 MG/ML VIAL IV ONE (07:35)
[2017-07-25 07:59] LABS: ALBUMIN 3.1 GM/DL (3.4-5.0); AST (GOT) 15 U/L (15-37); BICARBONATE 25.7 MEQ/L (21.0-32.0); BLOOD UREA NITROGEN 12 MG/DL (7-18); CALCIUM 8.5 MG/DL (8.5-10.1); CHLORIDE 107 MEQ/L (98-107); GLOMERULAR FILTRATION RATE 96 ML/MIN (>89); GLUCOSE,RANDOM 97 MG/DL (74-106); SODIUM (NA) 140 MEQ/L (136-145)
[2017-07-25 08:00] LABS: ALT (GPT) 18 U/L (10-53)
[2017-07-25] MEDS ORDERED: VALPROATE INJ 500 MG in SODIUM CHLORIDE 0.9% INJ 100 ML IV SCH (08:00)
[2017-07-25] MEDS ORDERED: VALPROATE INJ 750 MG in SODIUM CHLORIDE 0.9% INJ 100 ML IV ONE (08:00)
[2017-07-25 08:02] LABS: ALKALINE PHOSPHATASE 83 U/L (45-117); TOTAL BILIRUBIN ADULT LESS THAN 0.1 MG/DL (0.2-1.0)
[2017-07-25] MEDS: DOCUSATE SODIUM 50 MG/SENNA 8.6 MG TAB PO SCH ×2 (09:00→21:00)
[2017-07-25] MEDS: GABAPENTIN 300 MG CAP PO SCH ×3 (10:08→19:36)
[2017-07-25] MEDS: carBAMazepine 200 MG TAB PO SCH ×2 (10:08→21:17)
[2017-07-25] MEDS: predniSONE 10 MG TAB PO SCH (10:08)
[2017-07-25] MEDS: FAMOTIDINE 20 MG TAB PO SCH ×2 (10:08→21:17)
[2017-07-25] MEDS ORDERED: LORazepam 2 MG/ML VIAL IV PUSH ONE ×2 (11:30→21:00)
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
[2017-07-25] MEDS: PRAMIPEXOLE DIHYDROCHLORIDE 1 MG TAB PO SCH ×2 (12:43→21:17)
[2017-07-25] MEDS: QUEtiapine FUMARATE 200 MG TAB PO SCH ×2 (12:43→21:17)
[2017-07-25] MEDS: SODIUM CHLOR 0.9% 1000 ML INJ 1,000 ML IV SCH (12:44)
[2017-07-25] MEDS: ONDANSETRON HCL 4 MG/2 ML VIAL IVP PRN (15:47)
[2017-07-25] MEDS: ACETAMINOPHEN 500 MG CPLT PO PRN (15:47)
[2017-07-25] MEDS: VALPROATE INJ 500 MG in SODIUM CHLORIDE 0.9% INJ 100 ML IV SCH ×2 (15:50→21:18)
[2017-07-25] MEDS: ENOXAPARIN SODIUM 40 MG/0.4 ML SYRINGE SQ SCH (16:00)
--- NOTE | 2017-07-25 16:13 | EKG ---
Date Performed: 07/24/2017 Time Performed: 11:40:10 PTAGE: 32 years EKG: Sinus rhythm NORMAL ECG NO PREVIOUS TRACING DOCTOR: Sukh Dawkins Interpretating Date/Time 07/25/2017 16:09:12
[2017-07-25] MEDS ORDERED: LORazepam 2 MG/ML VIAL IV PUSH PRN ×2 (20:45→21:00)
[2017-07-26] VITALS (17 sets, daily range): BP systolic 102–123; BP diastolic 61–94; PULSE 75–107; RESP 12–37; TEMP 97.9–99.3; O2SAT 94–100
[2017-07-26] MEDS: ACETAMINOPHEN 500 MG CPLT PO PRN ×2 (04:00→08:57)
[2017-07-26] MEDS: ONDANSETRON HCL 4 MG/2 ML VIAL IVP PRN (04:43)
[2017-07-26] MEDS: VALPROATE INJ 500 MG in SODIUM CHLORIDE 0.9% INJ 100 ML IV SCH (06:41)
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
[2017-07-26] MEDS: PRAMIPEXOLE DIHYDROCHLORIDE 1 MG TAB PO SCH ×2 (08:56→20:38)
[2017-07-26] MEDS: GABAPENTIN 300 MG CAP PO SCH ×3 (08:56→17:46)
[2017-07-26] MEDS: predniSONE 10 MG TAB PO SCH (08:56)
[2017-07-26] MEDS: FAMOTIDINE 20 MG TAB PO SCH ×2 (08:56→20:37)
[2017-07-26] MEDS: QUEtiapine FUMARATE 200 MG TAB PO SCH ×2 (08:57→20:41)
[2017-07-26] MEDS: carBAMazepine 200 MG TAB PO SCH ×2 (08:57→20:40)
[2017-07-26] MEDS: SODIUM CHLORIDE 0.9% FLUSH 10 ML FLUSH IV FLUSH SCH ×2 (08:58→20:42)
[2017-07-26] MEDS: DOCUSATE SODIUM 50 MG/SENNA 8.6 MG TAB PO SCH ×2 (09:00→20:40)
[2017-07-26] MEDS: DIVALPROEX SODIUM E.R. 500 MG TAB PO SCH ×2 (12:32→20:41)
[2017-07-26] MEDS: SODIUM CHLOR 0.9% 1000 ML INJ 1,000 ML IV SCH ×2 (12:35→15:32)
[2017-07-26] MEDS ORDERED: METHOCARBAMOL 500 MG TAB PO PRN (13:30)
[2017-07-26] MEDS ORDERED: IBUPROFEN 600 MG TAB PO PRN (13:30)
[2017-07-26 13:54] LABS: ANA SCREEN NEG (NEG)
--- NOTE | 2017-07-26 15:16 | HHI.PR ---
Subjective Remarks Patient is a 32 yo F with h/o seizures, Crohn's and UC comes to the emergency department from [facility] after having 3 witnessed seizures. Patient was there reportedly for treatment of substance abuse. Patient received Versed by EMS. Paperwork sent with patient shows that she was placed in her [place] Part[place] on July 20 is good for 5 days. Now is more awake, asking for pain meds for her back. Says he takes morphine for back as she follows with pain management. Patient is telling me she was sent here from [facility] because she had seizures. Patient Says she feels a little weak now. No cp, sob, n/v/d/c. Denies abd pain. 4-3 Follow up for seizures. Patient having 2 recurrent seizures this morning. Vital signs stable. No reported seizures overnight. Patient unable to give any history due to ongoing seizure. RN giving IV Ativan. Discussed with Dr. Dempsey , recommends transfer to ICU. 4-4 patient has had no more seizures here. Meds have been adjusted by psychiatry Patient is not to have any Ativan Patient can be transferred out of the ICU Complains of pain in the left upper extremity will get an Doppler ultrasound Patient is requesting pain medications States she sees pain management [place] Patient sees Dr. Coffman in [place] We will transfer out of ICU Objective Vitals Vital Signs Date Time Temp Pulse Resp B/P (MAP) Pulse Ox O2 Delivery O2 Flow Rate FiO2 07/26/17 14:00 107 07/26/17 12:00 94 07/26/17 12:00 99.3 94 14 113/75 (88) 99 07/26/17 10:00 91 07/26/17 08:15 100 21 07/26/17 08:00 92 07/26/17 08:00 98.9 92 07/26/17 08:00 98.9 92 37 116/83 (94) 98 07/26/17 07:00 82 07/26/17 07:00 77 07/26/17 06:00 82 07/26/17 06:00 98.8 82 19 109/66 (80) 96 07/26/17 06:00 98.8 07/26/17 05:00 90 30 123/94 (104) 94 07/26/17 05:00 90 07/26/17 05:00 21 07/26/17 04:00 81 07/26/17 04:00 81 21 121/80 (94) 96 07/26/17 03:00 75 12 105/64 (78) 96 07/26/17 03:00 75 07/26/17 02:00 79 07/26/17 02:00 79 18 106/67 (80) 96 07/26/17 01:00 83 20 104/64 (77) 98 07/26/17 01:00 83 07/26/17 00:00 80 19 102/61 (75) 100 07/26/17 00:00 80 07/25/17 23:00 88 9 104/64 (77) 100 07/25/17 23:00 88 07/25/17 22:00 96 07/25/17 22:00 96 24 109/71 (84) 96 07/25/17 21:00 93 07/25/17 21:00 98.5 93 23 114/72 (86) 95 07/25/17 20:00 139 07/25/17 20:00 139 70 121/81 (94) 81 07/25/17 19:05 95 21 07/25/17 19:00 104 07/25/17 19:00 98.2 104 25 119/78 (92) 93 07/25/17 18:00 101 07/25/17 18:00 101 33 119/80 (93) 100 07/25/17 17:00 99.2 112 25 124/79 (94) 100 07/25/17 17:00 112 07/25/17 16:00 101 26 116/77 (90) 96 07/25/17 16:00 101 I/O 07/25/17 07/25/17 07/25/17 07/26/17 07/26/17 07/26/17 07:00 15:00 23:00 07:00 15:00 23:00 Intake Total 105 ml Balance 105 ml Intake IV Total 105 ml Result Diagram: 07/25/17 0636 07/25/17 0636 Other Results Laboratory Tests Test 07/24/17 10:55 07/24/17 11:10 07/24/17 12:20 07/24/17 18:46 Blood Urea Nitrogen 9 MG/DL Creatinine 0.62 MG/DL Random Glucose 88 MG/DL Total Protein 7.2 GM/DL Albumin 3.3 GM/DL Calcium Level 9.4 MG/DL Alkaline Phosphatase 90 U/L Aspartate Amino Transf (AST/SGOT) 16 U/L Alanine Aminotransferase (ALT/SGPT) 18 U/L Total Bilirubin 0.1 MG/DL Sodium Level 136 MEQ/L Potassium Level 4.2 MEQ/L Chloride Level 103 MEQ/L Carbon Dioxide Level 25.7 MEQ/L Anion Gap 7 MEQ/L Estimat Glomerular Filtration Rate 111 ML/MIN Lactic Acid Level 1.5 mmol/L Ammonia 17 MCMOL/L Thyroid Stimulating Hormone 3rd Gen 0.288 uIU/ML Salicylates Level 3.4 MG/DL Acetaminophen Level 2.9 MCG/ML Ethyl Alcohol Level LESS THAN 3 MG/DL Urine Color LIGHT-YELLOW Urine Turbidity CLEAR Urine pH 7.0 Urine Specific Kempner 1.010 Urine Protein NEG mg/dL Urine Glucose (UA) NEG mg/dL Urine Ketones NEG mg/dL Urine Occult Blood NEG Urine Nitrite NEG Urine Bilirubin NEG Urine Urobilinogen LESS THAN 2.0 MG/DL Urine Leukocyte Esterase NEG Urine WBC LESS THAN 1 /hpf Urine Squamous Epithelial Cells 2 /hpf Microscopic Urinalysis Comment CATH-CULT NOT IND Urine Opiates Screen NEG Urine Barbiturates Screen NEG Urine Amphetamines Screen NEG Urine Benzodiazepines Screen POS Urine Cocaine Screen NEG Urine Cannabinoids Screen NEG White Blood Count 8.5 TH/MM3 Red Blood Count 4.02 MIL/MM3 Hemoglobin 11.2 GM/DL Hematocrit 33.8 % Mean Corpuscular Volume 84.1 FL Mean Corpuscular Hemoglobin 27.9 PG Mean Corpuscular Hemoglobin Concent 33.2 % Red Cell Distribution Width 17.3 % Platelet Count 405 TH/MM3 Mean Platelet Volume 7.8 FL Neutrophils (%) (Auto) 69.7 % Lymphocytes (%) (Auto) 21.4 % Monocytes (%) (Auto) 6.0 % Eosinophils (%) (Auto) 2.1 % Basophils (%) (Auto) 0.8 % Neutrophils # (Auto) 5.9 TH/MM3 Lymphocytes # (Auto) 1.8 TH/MM3 Monocytes # (Auto) 0.5 TH/MM3 Eosinophils # (Auto) 0.2 TH/MM3 Basophils # (Auto) 0.1 TH/MM3 CBC Comment DIFF FINAL Differential Comment Prothrombin Time 9.5 SEC Prothromb Time International Ratio 0.9 RATIO Activated Partial Thromboplast Time 27.1 SEC C-Reactive Protein 0.76 MG/DL Vitamin B12 Level 714 PG/ML Free Thyroxine 0.63 NG/DL Carbamazepine (Tegretol) Level 7.6 MCG/ML Test 07/25/17 06:30 07/25/17 06:36 07/25/17 08:55 07/26/17 03:45 Anti-Nuclear Antibody Screen NEG Rapid Plasma Reagin NON-REACTIVE White Blood Count 6.6 TH/MM3 Red Blood Count 3.90 MIL/MM3 Hemoglobin 10.8 GM/DL Hematocrit 32.8 % Mean Corpuscular Volume 84.3 FL Mean Corpuscular Hemoglobin 27.8 PG Mean Corpuscular Hemoglobin Concent 33.0 % Red Cell Distribution Width 17.7 % Platelet Count 389 TH/MM3 Mean Platelet Volume 7.9 FL Neutrophils (%) (Auto) 55.9 % Lymphocytes (%) (Auto) 31.6 % Monocytes (%) (Auto) 9.3 % Eosinophils (%) (Auto) 2.1 % Basophils (%) (Auto) 1.1 % Neutrophils # (Auto) 3.7 TH/MM3 Lymphocytes # (Auto) 2.1 TH/MM3 Monocytes # (Auto) 0.6 TH/MM3 Eosinophils # (Auto) 0.1 TH/MM3 Basophils # (Auto) 0.1 TH/MM3 CBC Comment DIFF FINAL Differential Comment Erythrocyte Sedimentation Rate 31 mm/hr Blood Urea Nitrogen 12 MG/DL Creatinine 0.70 MG/DL Random Glucose 97 MG/DL Total Protein 7.0 GM/DL Albumin 3.1 GM/DL Calcium Level 8.5 MG/DL Alkaline Phosphatase 83 U/L Aspartate Amino Transf (AST/SGOT) 15 U/L Alanine Aminotransferase (ALT/SGPT) 18 U/L Total Bilirubin LESS THAN 0.1 MG/DL Sodium Level 140 MEQ/L Potassium Level 4.0 MEQ/L Chloride Level 107 MEQ/L Carbon Dioxide Level 25.7 MEQ/L Anion Gap 7 MEQ/L Estimat Glomerular Filtration Rate 96 ML/MIN Carbamazepine (Tegretol) Level 9.0 MCG/ML 9.4 MCG/ML Nasal Screen MRSA (PCR) MRSA NOT DETECTED Valproic Acid (Depakene) Level 55 MCG/ML Imaging Last Impressions Brain MRI 07/24/17 7746 Signed Impressions: Service Date/Time: Monday, July 24, 2017 22:25 - CONCLUSION: Normal examination. Matthieu Herbert MD Head CT [id number]/24/171042 Signed Impressions: Service Date/Time: Monday, July 24, 2017 11:00 - CONCLUSION: Negative exam. No acute intracranial process to explain clinical symptoms. Matthew Mart MD Chest X-Ray 07/24/171042 Signed Impressions: Service Date/Time: Monday, July 24, 2017 10:49 - CONCLUSION: 1. No acute cardiopulmonary findings. German Alexander MD Objective Remarks GENERAL: Awake alert oriented 3 talkative and cooperative complaining of pain in left SKIN: Warm and dry. HEAD: Atraumatic. Normocephalic. EYES: Pupils equal and round. No scleral icterus. No injection or drainage. Extraocular muscles intact ENT: No nasal bleeding or discharge. Mucous membranes pink and moist. Tongue is midline NECK: Trachea midline. No JVD. Supple CARDIOVASCULAR: Regular rate and rhythm. S1-S2 no S3 or S4 no heave or thrill or rub or RESPIRATORY: No accessory muscle use. Clear to auscultation. Breath sounds equal bilaterally. GASTROINTESTINAL: Abdomen soft, non-tender, nondistended. Hepatic and splenic margins not palpable. MUSCULOSKELETAL: Extremities without clubbing, cyanosis, or edema. No obvious deformities. NEUROLOGICAL: Awake and alert. No obvious cranial nerve deficits. Motor grossly within normal limits. Five out of 5 muscle strength in the arms and legs. Normal speech. PSYCHIATRIC: INAppropriate mood and affect; insight and judgment ABnormal. Procedures EEG negative for any seizure activity Medications and IVs Current Medications Sodium Chloride (NS Flush) 2 ml UNSCH PRN IV FLUSH FLUSH AFTER USING IV ACCESS ; Start 07/24/17 at 10:45; Stop 07/24/17 at 21:40; Status DC Sodium Chloride 1,000 ml @ 1,000 mls/hr Q1H IV Last administered on 07/24/17at 11:29; Start 07/24/17 at 10:43; Stop 07/24/17 at 11:42; Status DC Ketorolac Tromethamine (Toradol Inj) 30 mg ONCE ONCE IV PUSH Last administered on 07/24/17at 13:19; Start 07/24/17 at 13:00; Stop 07/24/17 at 13:01; Status DC Carbamazepine (TEGretol) 200 mg ONCE ONCE PO Last administered on 07/24/17at 13: 17; Start 07/24/17 at 13:00; Stop 07/24/17 at 13:01; Status DC Gabapentin (Neurontin) 200 mg ONCE ONCE PO Last administered on 07/24/17at 13:18 ; Start 07/24/17 at 13:00; Stop 07/24/17 at 13:01; Status DC Sodium Chloride 1,000 ml @ 100 mls/hr Q10H IV Last administered on 07/26/17at 12 :35; Start 07/24/17 at 13:32 Sodium Chloride (NS Flush) 2 ml UNSCH PRN IV FLUSH FLUSH AFTER USING IV ACCESS ; Start 07/24/17 at 13:45 Sodium Chloride (NS Flush) 2 ml BID IV FLUSH Last administered on 07/26/17at 08: 58; Start 07/24/17 at 21:00 Acetaminophen (Tylenol) 650 mg Q4H PRN PO TEMP > 100.4; Start 07/24/17 at 13:45 ; Stop 07/24/17 at 17:06; Status DC Ondansetron HCl (Zofran Inj) 4 mg Q6H PRN IVP NAUSEA OR VOMITING Last administered on 07/26/17at 04:43; Start 07/24/17 at 13:45 Enoxaparin Sodium (Lovenox Inj) 40 mg Q24H SQ Last administered on 07/24/17at 17: 37; Start 07/24/17 at 16:00 Naloxone HCl (Narcan Inj) 0.4 mg UNSCH PRN IV PUSH SEE LABEL COMMENTS; Start at 13:45 Senna/Docusate Sodium (Lesly-Colace) 1 tab BID PO Last administered on 07/24/17at 20:49; Start 07/24/17 at 21:00 Magnesium Hydroxide (Milk Of Magnesia Liq) 30 ml Q12H PRN PO Mild constipation ; Start 07/24/17 at 13:45 Sennosides (Senokot) 17.2 mg Q12H PRN PO Moderate constipation; Start 07/24/17 at 13:45 Bisacodyl (Dulcolax Supp) 10 mg DAILY PRN RECTAL SEVERE CONSITIPATION; Start at 13:45 Lactulose (Lactulose Liq) 30 ml DAILY PRN PO SEVERE CONSITIPATION; Start at 13:45 Albuterol Sulfate (Proair Hfa Inh) 2 puff Q6H PRN INH SHORTNESS OF BREATH; Start 07/24/17 at 13:45 Carbamazepine (TEGretol) 200 mg BID PO Last administered on 07/24/17 20:49; Start 07/24/17 at 21:00; Stop 07/24/17 at 21:15; Status DC Gabapentin (Neurontin) 300 mg TID PO Last administered on 07/26/17 12:31; Start 07/24/17 at 18:00 Pramipexole Dihydrochloride (Mirapex) 1 mg BID PO Last administered on 08:56; Start 07/24/17 at 21:00 Quetiapine Fumarate (SEROquel) 200 mg BID PO Last administered on 07/26/17 08: 57; Start 07/24/17 at 21:00 Famotidine (Pepcid) 20 mg BID PO Last administered on 07/26/17 08:56; Start 07/24/17 at 21:00 Prednisone (Deltasone) 30 mg DAILY PO Last administered on 07/26/17 08:56; Start 07/25/17 at 09:00 Acetaminophen (Tylenol) 500 mg Q6H PRN PO FEVER/PAIN Last administered on 08:57; Start 07/24/17 at 17:00 Diphenhydramine HCl (Benadryl) 50 mg ONCE ONCE PO Last administered on 20:49; Start 07/24/17 at 20:15; Stop 07/24/17 at 20:16; Status DC Carbamazepine (TEGretol) 300 mg BID PO Last administered on 07/26/17 08:57; Start 07/25/17 at 09:00 Miscellaneous (Pill Splitter) 1 ea UNSCH PRN OTHER SEE LABEL COMMENTS; Start at 21:45 Gadodiamide (Omniscan Pf Inj) 12 ml STK-MED ONCE IVCONTRAST Last administered on 07/24/17 22:57; Start 07/24/17 at 13:47; Stop 07/24/17 at 22:52; Status DC Lorazepam (Ativan Inj) 0.5 mg STAT ONCE IV Last administered on 4/3/18at 07:32 ; Start 07/25/17 at 07:35; Stop 07/25/17 at 07:41; Status DC Valproate Sodium 500 mg/Sodium Chloride 105 ml @ 105 mls/hr Q8HR IV ; Start 07/25/17 at 08:00; Stop 07/25/17 at 08:00; Status DC Valproate Sodium 750 mg/Sodium Chloride 107.5 ml @ 107.5 mls/ hr NOW ONCE IV Last administered on 07/25/17at 08:04; Start 07/25/17 at 08:00; Stop 07/26/17 at 08: 01; Status DC Valproate Sodium 500 mg/Sodium Chloride 105 ml @ 105 mls/hr Q8HR IV Last administered on 07/26/17at 06:41; Start 07/25/17 at 16:00; Stop 07/26/17 at 08:01; Status DC Lorazepam (Ativan Inj) 1 mg ONCE ONCE IV PUSH Last administered on 07/25/17at 10 :50; Start 07/25/17 at 11:30; Stop 07/25/17 at 11:40; Status DC Lorazepam (Ativan Inj) 1 mg Q10M PRN IV PUSH SEE LABEL COMMENTS; Start 07/25/17 at 20:45; Stop 07/25/17 at 20:47; Status DC Lorazepam (Ativan Inj) 0.5 mg ONCE ONCE IV PUSH ; Start 07/25/17 at 21:00; Stop 07/25/17 at 21:00; Status DC Lorazepam (Ativan Inj) 1 mg ONCE PRN IV PUSH SEIZURES; Start 07/25/17 at 21:00; Stop 07/26/17 at 20:59 Divalproex Sodium (Depakote Er) 500 mg BID PO Last administered on 07/26/17at 12: 32; Start 07/26/17 at 09:00 Ibuprofen (Motrin) 600 mg Q6H PRN PO MUSCULAR PAIN 3-10; Start 07/26/17 at 13:30 ; Status UNV Methocarbamol (Robaxin) 500 mg Q8HR PRN PO MUSCLE SPASMS; Start 07/26/17 at 13: 30; Status UNV A/P Assessment and Plan 32 yo F with h/o seizures, Crohn's/UC, presents to the ED from [facility] after having 3 witnessed seizures. Patient was there reportedly for treatment of substance abuse. Patient received Versed by EMS. Paperwork sent with patient shows that she was placed in her Ex Parte on July 20 is good for 5 days. Intractable Seizures: patient with 3 seizures at [facility], now with 2 seizures again this morning 07/25 in CDU. -Head CT and Brain MRI images reviewed, unremarkable -EEG 07/24 shows some beta rhythm consistent with medication use, otherwise unremarkable. -Neurology consulted, discussed with Dr. Dempsey -Started on IV Decadron 500mg q8h, follow daily levels -Continue Tegretol 200mg bid, Gabapentin 300mg tid, Mirapex 1mg bid -Seizure precautions, neuro checks -Transfer to [facility] per [place]. Dempsey Suspect negative seizure activity pseudoseizures versus factitious seizures Polysubstance Abuse: Presented under Ex Parte from [facility]. Has not received a prescription for Xanax since December. -patient will likely need to return to [facility] when medically clear -tylenol prn pain -avoid narcotics Crohn's Disease: chronic -continue patient's prednisone Left upper extremity induration possibly due to IV versus questionable spider bite We will get ultrasound of the upper extremity Transferred to medical floor No narcotics We will give Motrin and Robaxin DVT Prophylaxis: Lovenox sq Discharge Planning Discussed with patient and transfer car operator drier off the floor monitor ultrasound of the left upper extrema Jelani Mccormick DO Jul 26, 2017 15:15
[2017-07-26] MEDS: ENOXAPARIN SODIUM 40 MG/0.4 ML SYRINGE SQ SCH (17:46)
[2017-07-26] MEDS: traMADol HCL 50 MG TAB PO PRN (17:47)
--- NOTE | 2017-07-26 22:01 | RADRPT ---
EXAM DATE/TIME: 07/26/2017 20:59 [facility] COMPARISON: No previous studies available for comparison. INDICATIONS : Left arm swelling. MEDICAL HISTORY : Chronic obstructive pulmonary disease. Crohn's disease. ulcerative colitis. substance use. colon tu mor. SURGICAL HISTORY : Tubal ligation. Appendectomy. Hernia repair. Colon resection with colostomy and reversal. Tumor re moved from breast. Tumor removed from breast. ENCOUNTER: Initial ACUITY: 1 day PAIN SCORE: 4/10 LOCATION: Left arm. FINDINGS: There is spontaneous flow documented in the brachial, basilic, cephalic, axillary, and subclavian vei ns. The vessels are compressible and augmentation response is documented. No filling defects are se en. The flow is phasic with respiration. Direction of flow in the jugular vein is caudal. 1 cm x 1 cm focal area of edema mid upper extremity, nonspecific. CONCLUSION: Negative for venous thrombosis Jelani Alexander MD FACR on July 26, 2017 at 21:57 Board Certified Radiologist. This report was verified electronically.
[2017-07-27] MEDS: SODIUM CHLOR 0.9% 1000 ML INJ 1,000 ML IV SCH ×3 (00:46→11:32)
[2017-07-27] MEDS: traMADol HCL 50 MG TAB PO PRN ×2 (00:46→06:36)
[2017-07-27 00:50] VITALS: BP 130/96; PULSE 90; RESP 18; TEMP 98.1; O2SAT 99
[2017-07-27 05:30] VITALS: BP 122/66; PULSE 94; RESP 18; TEMP 98.3; O2SAT 98
--- NOTE | 2017-07-27 05:51 | PD.PN.STU ---
Subjective Remarks Follow up for seizures, Crohn's and UC. Patient reports no acute events over night. She did not have any seizures over night. She is complaining of a pain in her left arm that "the tramadol isn't touching." She has had this pain for 1 week now, which she reports started after she had a line put in. She says the pain radiates down to her fifth finger. Denies fever, chills, chest pain, SOB, nausea, vomiting. Objective Vitals Vital Signs Date Time Temp Pulse Resp B/P (MAP) Pulse Ox O2 Delivery O2 Flow Rate FiO2 07/27/17 00:50 98.1 90 18 130/96 (107) 99 07/26/17 22:30 97.9 87 18 119/88 (98) 95 07/26/17 20:00 98.8 86 18 108/68 (81) 97 07/26/17 20:00 86 07/26/17 18:00 92 07/26/17 16:00 106 07/26/17 16:00 98.0 106 28 121/79 (93) 97 07/26/17 14:00 107 07/26/17 12:00 94 07/26/17 12:00 99.3 94 14 113/75 (88) 99 07/26/17 10:00 91 07/26/17 08:15 100 21 07/26/17 08:00 92 07/26/17 08:00 98.9 92 07/26/17 08:00 98.9 92 37 116/83 (94) 98 07/26/17 07:00 82 07/26/17 07:00 77 07/26/17 06:00 82 07/26/17 06:00 98.8 82 19 109/66 (80) 96 07/26/17 06:00 98.8 I/O 07/26/17 07/26/17 07/26/17 07/27/17 07/27/17 07/27/17 07:00 15:00 23:00 07:00 15:00 23:00 # Voids 2 Result Diagram: 07/25/17 0636 07/25/17 0636 Imaging Last Impressions Upper Extremity Ultrasound 07/26/17 0000 Signed Impressions: Service Date/Time: Wednesday, July 26, 2017 20:59 - CONCLUSION: Negative for venous thrombosis Jelani Alexander MD FACR Brain MRI 07/24/17 0014 Signed Impressions: Service Date/Time: Monday, July 24, 2017 22:25 - CONCLUSION: Normal examination. Matthieu Herbert MD Head CT 07/24/17 1043 Signed Impressions: Service Date/Time: Monday, July 24, 2017 11:00 - CONCLUSION: Negative exam. No acute intracranial process to explain clinical symptoms. Matthew Mart MD Chest X-Ray 07/24/171042 Signed Impressions: Service Date/Time: Monday, July 24, 2017 10:49 - CONCLUSION: 1. No acute cardiopulmonary findings. German Alexander MD Objective Remarks GENERAL: Alert, oriented x3, NAD. SKIN: Warm and dry. HEAD: Normocephalic. EYES: No scleral icterus. No injection or drainage. NECK: Supple, trachea midline. No JVD or lymphadenopathy. CARDIOVASCULAR: Regular rate and rhythm without murmurs, gallops, or rubs. RESPIRATORY: Breath sounds equal bilaterally. No accessory muscle use. GASTROINTESTINAL: Abdomen soft, non-tender, nondistended. MUSCULOSKELETAL: No cyanosis, or edema. Some ecchymosis over the medial arm, no erythema. BACK: Nontender without obvious deformity. No CVA tenderness. A/P Assessment and Plan The patient is a 32 year old female with history of seizures, Crohn's/UC who presented to the ED from [facility] after having 3 witnessed seizures. Patient was there reportedly for treatment of substance abuse. Patient received Versed by EMS. Paperwork sent with patient shows that she was placed in her Ex Parte on July 20 is good for 5 days. Intractable Seizures: patient with 3 seizures at [facility], now with 2 seizures again this morning 07/[address] and Brain MRI images reviewed, unremarkable EEG 07/24 shows some beta rhythm consistent with medication use, otherwise unremarkable. Neurology consulted, discussed with Dr. Dempsey Started on IV Decadron 500mg q8h, follow daily levels Continue Tegretol 200mg bid, Gabapentin 300mg tid, Mirapex 1mg bid Seizure precautions, neuro checks [place] [facility] Suspect negative seizure activity pseudoseizures versus factitious seizures no seizures on floor over night 07/26 Polysubstance Abuse: Presented under Ex Parte from [facility]. Has not received a prescription for Xanax since December. patient will likely need to return to [facility] when medically clear tylenol prn pain avoid narcotics Crohn's Disease: chronic continue prednisone Left upper arm pain: Left upper arm U/S shows no evidence of DVT concerned about narcotic pain medication due to hx of polysubstance abuse DVT Prophylaxis: Lovenox sq D/C today, neuro cleared lab orders for Monday and f/u with neurology in [place] in 1 week. The patient was seen next and examined. The case was discussed at length with David Zepeda MS III. The noted above was reviewed and agree with the above note. David Zepeda M3 Jul 27, 2017 05:51 Sarah Beth Carolina MD Jul 27, 2017 17:17
[2017-07-27 06:21] LABS: AUTOMATED NEUTROPHIL # 5.3 TH/MM3 (1.8-7.7); BASOPHIL # 0.1 TH/MM3 (0-0.2); BASOPHIL % 1.1 % (0.0-2.0); EOSINOPHIL # 0.1 TH/MM3 (0-0.4); HEMATOCRIT 33.6 % (35.0-46.0); HEMOGLOBIN 11.1 GM/DL (11.6-15.3); LYMPH % 35.3 % (9.0-44.0); LYMPHOCYTE # 3.7 TH/MM3 (1.0-4.8); MEAN CELL VOLUME 83.6 FL (80.0-100.0); MEAN CORPUSCULAR HEMOGLOBIN 27.6 PG (27.0-34.0); MONOCYTE # 1.1 TH/MM3 (0-0.9); NEUT % 51.6 % (16.0-70.0); PLATELET COUNT 421 TH/MM3 (150-450); RED BLOOD COUNT 4.02 MIL/MM3 (4.00-5.30); RED CELL DISTRIBUTION WIDTH 17.4 % (11.6-17.2); WHITE BLOOD COUNT 10.4 TH/MM3 (4.0-11.0)
[2017-07-27 07:05] LABS: ALBUMIN 3.2 GM/DL (3.4-5.0); ALKALINE PHOSPHATASE 78 U/L (45-117); ALT (GPT) 28 U/L (10-53); AST (GOT) 16 U/L (15-37); BICARBONATE 23.2 MEQ/L (21.0-32.0); BLOOD UREA NITROGEN 12 MG/DL (7-18); CALCIUM 8.6 MG/DL (8.5-10.1); CARBAMAZEPINE (TEGRETOL) 11.2 MCG/ML (4.0-12.0); CHLORIDE 101 MEQ/L (98-107); CREATININE 0.79 MG/DL (0.50-1.00); FREE T4 0.63 NG/DL (0.76-1.46); GLOMERULAR FILTRATION RATE 84 ML/MIN (>89); GLUCOSE,RANDOM 92 MG/DL (74-106); MAGNESIUM 1.6 MG/DL (1.5-2.5); PHOSPHORUS 4.2 MG/DL (2.5-4.9); SODIUM (NA) 136 MEQ/L (136-145); TOTAL BILIRUBIN ADULT LESS THAN 0.1 MG/DL (0.2-1.0); TOTAL PROTEIN 7.2 GM/DL (6.4-8.2)
[2017-07-27 08:00] VITALS: BP 133/90; PULSE 85; RESP 16; TEMP 98.6; O2SAT 98
--- NOTE | 2017-07-27 08:30 | HHI.PR ---
Subjective Remarks no more sz Objective Vital Signs Date Time Temp Pulse Resp B/P (MAP) Pulse Ox O2 Delivery O2 Flow Rate FiO2 07/27/17 05:30 98.3 94 18 122/66 (84) 98 07/27/17 00:50 98.1 90 18 130/96 (107) 99 07/26/17 22:30 97.9 87 18 119/88 (98) 95 07/26/17 20:00 98.8 86 18 108/68 (81) 97 07/26/17 20:00 86 07/26/17 18:00 92 07/26/17 16:00 106 07/26/17 16:00 98.0 106 28 121/79 (93) 97 07/26/17 14:00 107 07/26/17 12:00 94 07/26/17 12:00 99.3 94 14 113/75 (88) 99 07/26/17 10:00 91 I/O 07/26/17 07/26/17 07/26/17 07/27/17 07/27/17 07/27/17 07:00 15:00 23:00 07:00 15:00 23:00 # Voids 5 Result Diagram: 07/27/17 0603 07/27/17 0603 Objective Remarks alert vff face sym voice nl nl gait Assessment and Plan Assessment and Plan imp mri nl eeg neg labs neg cbz 11 i have dec dose back to 200 bid po depakote level 50 stable and will dc on this and cbz she needs cbc bmp lft and cbz and vpa levels drawn monday out pt and needs to fu with neurology in [place] psych did not want her getting benzos and with drug abuse hx tramadol not a good med for her also the tramadol is contraindicated in seizure disorders as lowers sz threshold and i have dc that ok to dc neuro persaud Aris Dempsey MD Jul 27, 2017 08:30
[2017-07-27] MEDS: predniSONE 10 MG TAB PO SCH (08:38)
[2017-07-27] MEDS: FAMOTIDINE 20 MG TAB PO SCH (08:38)
[2017-07-27] MEDS: QUEtiapine FUMARATE 200 MG TAB PO SCH (08:38)
[2017-07-27] MEDS: GABAPENTIN 300 MG CAP PO SCH (08:38)
[2017-07-27] MEDS: DOCUSATE SODIUM 50 MG/SENNA 8.6 MG TAB PO SCH (08:38)
[2017-07-27] MEDS: DIVALPROEX SODIUM E.R. 500 MG TAB PO SCH (08:38)
[2017-07-27] MEDS: PRAMIPEXOLE DIHYDROCHLORIDE 1 MG TAB PO SCH (08:40)
[2017-07-27] MEDS: SODIUM CHLORIDE 0.9% FLUSH 10 ML FLUSH IV FLUSH SCH (08:41)
[2017-07-27] MEDS ORDERED: carBAMazepine 200 MG TAB PO SCH (09:00)
[2017-07-27] MEDS ORDERED: METH500T3 PO (10:24)
[2017-07-27] MEDS ORDERED: DEPA500T3 PO (10:24)
[2017-07-27] MEDS ORDERED: IBUP-232 PO (10:24)
--- NOTE | 2017-07-27 10:26 | HHI.DS ---
Discharge Summary Admission Date Jul 25, 2017 at 07:24 Discharge Date: Jul 27, 2017 Admitting Diagnosis Epilepsy (1) Epilepsy ICD Code: G40.909 - Epilepsy, unspecified, not intractable, without status epilepticus Status: Acute (2) Low TSH level ICD Code: R94.6 - Abnormal results of thyroid function studies Status: Acute (3) Bipolar disorder ICD Code: F31.9 - Bipolar disorder, unspecified Procedures EEG negative for any seizure activity Brief History - From Admission Patient is a 32 yo F with h/o seizures, Crohn's and UC comes to the emergency department from [facility] after having 3 witnessed seizures. Patient was there reportedly for treatment of substance abuse. Patient received Versed by EMS. Paperwork sent with patient shows that she was placed in her [place] on July 20 is good for 5 days. Now is more awake, asking for pain meds for her back. Says he takes morphine for back as she follows with pain management. Patient is telling me she was sent here from [facility] because she had seizures. Patient Says she feels a little weak now. No cp, sob, n/v/d/c. Denies abd pain. CBC/BMP: 07/27/17 0603 07/27/17 0603 Significant Findings Laboratory Tests Test 07/24/17 10:55 07/24/17 11:10 07/24/17 12:20 07/24/17 18:46 Albumin 3.3 GM/DL (3.4-5.0) Total Bilirubin 0.1 MG/DL (0.2-1.0) Thyroid Stimulating Hormone 3rd Gen 0.288 uIU/ML (0.358-3.740) Acetaminophen Level 2.9 MCG/ML (10.0-30.0) Urine Benzodiazepines Screen POS (NEG) Hemoglobin 11.2 GM/DL (11.6-15.3) Hematocrit 33.8 % (35.0-46.0) Red Cell Distribution Width 17.3 % (11.6-17.2) Prothrombin Time 9.5 SEC (9.8-11.6) C-Reactive Protein 0.76 MG/DL (0.00-0.30) Free Thyroxine 0.63 NG/DL (0.76-1.46) Test 07/25/17 06:30 07/25/17 06:36 07/25/17 08:55 07/26/17 03:45 Red Blood Count 3.90 MIL/MM3 (4.00-5.30) Hemoglobin 10.8 GM/DL (11.6-15.3) Hematocrit 32.8 % (35.0-46.0) Red Cell Distribution Width 17.7 % (11.6-17.2) Monocytes (%) (Auto) 9.3 % (0.0-8.0) Erythrocyte Sedimentation Rate 31 mm/hr (0-20) Albumin 3.1 GM/DL (3.4-5.0) Total Bilirubin LESS THAN 0.1 MG/DL Test 07/27/17 06:03 Hemoglobin 11.1 GM/DL (11.6-15.3) Hematocrit 33.6 % (35.0-46.0) Red Cell Distribution Width 17.4 % (11.6-17.2) Monocytes (%) (Auto) 11.0 % (0.0-8.0) Monocytes # (Auto) 1.1 TH/MM3 (0-0.9) Albumin 3.2 GM/DL (3.4-5.0) Total Bilirubin LESS THAN 0.1 MG/DL Potassium Level 3.4 MEQ/L (3.5-5.1) Estimat Glomerular Filtration Rate 84 ML/MIN (>89) Free Thyroxine 0.63 NG/DL (0.76-1.46) Imaging Last Impressions Upper Extremity Ultrasound 07/26/17 0000 Signed Impressions: Service Date/Time: Wednesday, July 26, 2017 20:59 - CONCLUSION: Negative for venous thrombosis Jelani Alexander MD FACR Brain MRI 07/24/17 [id number] Signed Impressions: Service Date/Time: Monday, July 24, 2017 22:25 - CONCLUSION: Normal examination. Matthieu Herbert MD Head CT [id number] Signed Impressions: Service Date/Time: Monday, July 24, 2017 11:00 - CONCLUSION: Negative exam. No acute intracranial process to explain clinical symptoms. Matthew Mart MD Chest X-Ray [id number] Signed Impressions: Service Date/Time: Monday, July 24, 2017 10:49 - CONCLUSION: 1. No acute cardiopulmonary findings. German Alexander MD PE at Discharge GENERAL: Awake alert oriented 3 talkative and cooperative complaining of pain in left SKIN: Warm and dry. HEAD: Atraumatic. Normocephalic. EYES: Pupils equal and round. No scleral icterus. No injection or drainage. Extraocular muscles intact ENT: No nasal bleeding or discharge. Mucous membranes pink and moist. Tongue is midline NECK: Trachea midline. No JVD. Supple CARDIOVASCULAR: Regular rate and rhythm. S1-S2 no S3 or S4 no heave or thrill or rub or RESPIRATORY: No accessory muscle use. Clear to auscultation. Breath sounds equal bilaterally. GASTROINTESTINAL: Abdomen soft, non-tender, nondistended. Hepatic and splenic margins not palpable. MUSCULOSKELETAL: Extremities without clubbing, cyanosis, or edema. No obvious deformities. NEUROLOGICAL: Awake and alert. No obvious cranial nerve deficits. Motor grossly within normal limits. Five out of 5 muscle strength in the arms and legs. Normal speech. PSYCHIATRIC: INAppropriate mood and affect; insight and judgment ABnormal. Pt update on day of discharge No seizures. No events overnight. She is eating well. No nausea or vomiting no diarrhea or constipation. Denies chest pain. No motor deficit or sensory deficit. Hospital Course 32 yo F with h/o seizures, Crohn's/UC, presents to the ED from [facility] after having 3 witnessed seizures. Patient was there reportedly for treatment of substance abuse. Patient received Versed by EMS. Paperwork sent with patient shows that she was placed in her [place] on July 20 is good for 5 days. Intractable Seizures: patient with 3 seizures at [facility], now with 2 seizures again this morning / in CDU. Head CT and Brain MRI images reviewed, unremarkable EEG 07/24 shows some beta rhythm consistent with medication use, otherwise unremarkable. Neurology consulted, discussed with Dr. Dempsey Started on IV Decadron 500mg q8h, follow daily levels Continue Tegretol 200mg bid, Gabapentin 300mg tid, Mirapex 1mg bid Seizure precautions, neuro checks Suspect negative seizure activity pseudoseizures versus factitious seizures Improved. Continue Tegretol, Depakene no more seizures. Cleared by neurology for discharge. Patient can be discharged to follow-up with her neurology in [place]. Check CBC, BMP, liver function tests, Tegretol and Depakene level on Monday. Polysubstance Abuse: Presented under [place] from [facility]. Has not received a prescription for Xanax since December. -patient will likely need to return to [facility] when medically clear -tylenol prn pain -avoid narcotics Crohn's Disease: chronic -continue patient's prednisone Left upper extremity induration possibly due to IV versus questionable spider bite We will get ultrasound of the upper extremity Transferred to medical floor No narcotics We will give Motrin and Robaxin DVT Prophylaxis: Lovenox sq Discharge Planning Discussed with patient and change control manager off the floor monitor ultrasound of the left upper extremities Improved. Continue Tegretol, Depakene as OP, no more seizures. Cleared by neurology for discharge. Patient to follow-up with her neurology in [place]. Check CBC, BMP, liver function tests, Tegretol and Depakene level on Monday. Patient is discharged in stable condition to follow-up with PCP and consultants as outpatient. Patient was instructed to not drive until cleared by neurology. Pt Condition on Discharge: Stable Discharge Disposition: Discharge Home Discharge Time: > 30 minutes Discharge Instructions DIET: Follow Instructions for: As Tolerated, No Restrictions Activities you can perform: Regular-No Restrictions Activities to Avoid: Driving Other Activity Instructions: DO NOT DRIVE UNTIL CLEARED BY NEUROLOGY Follow up Referrals: Appointment for Follow Up @ [facility] - 1 Week PCP Follow-up - 2-3 Days PCP Follow-up New Orders: CBC WITH DIFF - 07/31/17 COMP MET PROF (CMP) - 07/31/17 DEPAKENE - 07/31/17 TEGRETOL - 07/31/17 New Medications: Divalproex ER (Depakote ER) 500 Mg Cristhian 500 MG PO BID for SEIZURES, #60 TAB Ibuprofen (Ibuprofen) 600 Mg Tab 600 MG PO Q6H PRN for PAIN , #15 TAB Methocarbamol (Methocarbamol) 500 Mg Tab 500 MG PO Q8HR PRN for MUSCLE SPASMS, #10 TAB Continued Medications: Albuterol 8.5 GM Inh (Proair Hfa 8.5 GM Inh) 90 Mcg/Act Aer 2 PUFF INH Q6H PRN for SHORTNESS OF BREATH, #1 INHALER 0 Refills 108 mcg/actuation Carbamazepine (Tegretol) 200 Mg Tab 200 MG PO BID, #60 TAB 0 Refills Gabapentin (Gabapentin) 300 Mg Cap 300 MG PO TID, #90 CAP 0 Refills Morphine ER (Morphine ER) 15 Mg Tab 15 MG PO BID for Pain Management, TAB 0 Refills Pramipexole (Mirapex) 1 Mg Tab 1 MG PO BID for Parkinson Disease Mgmt, #60 TAB 0 Refills Prednisone (Prednisone) 10 Mg Tab 30 MG PO DAILY, TAB 0 Refills Quetiapine (Seroquel) 200 Mg Tab 200 MG PO BID, #60 TAB 0 Refills Ranitidine (Zantac) 150 Mg Tab 150 MG PO BID for Reduce Stomach Acid, #60 TAB 0 Refills Sarah Beth Carolina MD Jul 27, 2017 10:26
[2017-07-27 17:24] LABS: HEMOGLOBIN A1C 5.5 % (4.3-6.0)
[2017-07-28 12:08] LABS: METHYLMALONIC ACID 0.25 nmol/mL (<=0.40)
== END 2017-07-27 12:30 | disposition home or self-care (01) | DRG 101 ==
LOC: NEPE 10:38 → NEDA 13:46 → NEPFCDU 16:30 → OBSVTOIN 07-25 07:24 → HIMW 07-25 08:50 → N05B 07-26 21:42
PROVIDERS: ADMIT Hospitalist; ATTEND Hospitalist
DX: G40.411 Other generalized epilepsy and epileptic syndromes, intractable, with status epilepticus (principal); E03.9 Hypothyroidism, unspecified; F31.70 Bipolar disorder, currently in remission, most recent episode unspecified; F19.10 Other psychoactive substance abuse, uncomplicated; M54.9 Dorsalgia, unspecified; M79.622 Pain in left upper arm; R94.6 Abnormal results of thyroid function studies; E78.00 Pure hypercholesterolemia, unspecified; F43.10 Post-traumatic stress disorder, unspecified; J45.909 Unspecified asthma, uncomplicated; F12.90 Cannabis use, unspecified, uncomplicated; F17.200 Nicotine dependence, unspecified, uncomplicated; Z79.899 Other long term (current) drug therapy; Z91.5 Personal history of self-harm
CPT/HCPCS: 70450; 70553; 71045; 80053; 80156; 80164; 80307; 81001; 82140; 82607; 83036; 83605; 83735; 83921; 84100; 84207; 84425; 84439; 84443; 84703; 85025; 85610; 85652; 85730; 86038; 86140; 86592; 87641; 93005; 93971; 95819; 96361; 96372; 96374; A9579; G0378; G8987-GP; G8988-GP; J1650; J1885; J2060; J2405; J7030; J7512; P9612; Q0163